=== PATIENT | male | born 1955 | race Two or more races ===

== ENCOUNTER 2017-10-19 23:18 | Inpatient (IN) | payer MEDICAID ==
[~2017-10-19] VITALS: Ht 175.3 cm; Wt 88.5 kg
[~2017-10-19 23:18] MED LIST: FOLI1TAB16 PO; LACT10SO PO; METF500T4 PO; OMEP20CA4 PO; SUCR1TAB31 PO
[2017-10-20] MEDS ORDERED: MORPHINE SULFATE INJ 2 MG/ML DISP.SYRIN IV ONE
[2017-10-20] MEDS ORDERED: ONDANSETRON HCL/PF 4 MG/2 ML VIAL IV ONE
[2017-10-20 00:10] LABS: BASOPHILS % (AUTO) 0.3 % (0.0-2.0); EOSINOPHILS % (AUTO) 1.1 % (0.0-6.0); HEMATOCRIT 36 % (39-51); HEMOGLOBIN 12.5 g/dL (13.5-17.5); LYMPHOCYTES # (AUTO) 0.7 /CMM (0.8-4.8); LYMPHOCYTES % (AUTO) 15.9 % (20.0-44.0); MEAN CORPUSCULAR HEMOGLOBIN 33 PG (26.0-33.0); MEAN CORPUSCULAR HGB CONC 35 g/dl (31.0-36.0); MEAN CORPUSCULAR VOLUME 95 fL (80-96); MONOCYTES # (AUTO) 0.5 /CMM (0.1-1.30); MONOCYTES % (AUTO) 10.7 % (2.0-12.0); NEUTROPHILS # (AUTO) 3.1 /CMM (1.8-8.9); PLATELET COUNT (AUTO) 115 /CMM (150-450); RDW COEFFICIENT OF VARIATION 14.5 (11.5-15.0); RED BLOOD CELL COUNT(AUTO) 3.78 MIL/uL (4.5-6.0); WHITE BLOOD COUNT (AUTO) 4.3 K/uL (4.3-11.0)
[2017-10-20 00:23] LABS: SERUM AMMONIA 56 umol/L (11-32)
[2017-10-20 00:24] LABS: CALCIUM, SERUM 8.1 mg/dL (8.5-10.1); CARBON DIOXIDE 26 mmol/L (21-32); CHLORIDE 109 mmol/L (98-107); CREATININE 0.8 mg/dL (0.6-1.3); GLUCOSE 105 mg/dL (74-106); POTASSIUM 3.9 mmol/L (3.5-5.1); SODIUM SERUM 141 mmol/L (136-145); UREA NITROGEN, BLOOD 15 mg/dL (7-18)
[2017-10-20 00:29] LABS: ALANINE AMINOTRANSFERASE 40 U/L (12-78); ALBUMIN 2.6 g/dL (3.4-5.0); ALKALINE PHOSPHATASE 144 U/L (46-116); ASPARTATE AMINOTRANSFERASE 60 U/L (15-37); BILIRUBIN,DIRECT 0.5 mg/dL (0.0-0.2); BILIRUBIN,TOTAL 1.3 mg/dL (0.2-1.0); LIPASE 231 U/L (73-393); TOTAL PROTEIN, SERUM 7.5 g/dL (6.4-8.2)
[2017-10-20 00:30] LABS: INR 1.18 (0.87-1.13); PROTHROMBIN TIME 12.3 SECS (9.5-12.7)
[2017-10-20] MEDS ORDERED: ONDANSETRON HCL/PF 4 MG/2 ML VIAL ONE (00:30)
[2017-10-20] MEDS ORDERED: MORPHINE SULFATE INJ 4 MG/ML DISP.SYRIN ONE (00:30)
[2017-10-20 00:32] LABS: TROPONIN I < 0.017 ng/mL (0.00-0.056)
[2017-10-20 03:00] VITALS: BP 137/89
[2017-10-20 03:30] VITALS: BP 137/89
[2017-10-20] MEDS ORDERED: *INSULIN REGULAR(HUMULIN R)HUM 100 UNIT/ML VIAL SQ PRN (04:00)
[2017-10-20] MEDS ORDERED: ACETAMINOPHEN 325 MG TABLET PO PRN (04:00)
[2017-10-20] MEDS ORDERED: INSULIN REGULAR, HUMAN 100 UNIT/ML 3 ML VIAL SQ PRN (04:00)
[2017-10-20] MEDS ORDERED: HYDROCODONE/APAP 5/325MG 1 EACH TABLET PO PRN (04:00)
[2017-10-20] MEDS ORDERED: DEXTROSE 50%-WATER 50 ML DISP.SYRIN IV PRN (04:00)
[2017-10-20] MEDS: BLOOD SUGAR DIAGNOSTIC 1 EACH STRIP VI SCH ×4 (06:39→23:04)
[2017-10-20 08:00] VITALS: BP 101/59
[2017-10-20 08:48] LABS: BASOPHILS % (AUTO) 0.2 % (0.0-2.0); EOSINOPHILS # (AUTO) 0.1 /CMM (0.0-0.7); EOSINOPHILS % (AUTO) 2.2 % (0.0-6.0); HEMATOCRIT 32 % (39-51); HEMOGLOBIN 11.4 g/dL (13.5-17.5); LYMPHOCYTES # (AUTO) 0.8 /CMM (0.8-4.8); LYMPHOCYTES % (AUTO) 22.2 % (20.0-44.0); MEAN CORPUSCULAR HEMOGLOBIN 34 PG (26.0-33.0); MEAN CORPUSCULAR HGB CONC 35 g/dl (31.0-36.0); MEAN CORPUSCULAR VOLUME 96 fL (80-96); MONOCYTES # (AUTO) 0.5 /CMM (0.1-1.30); MONOCYTES % (AUTO) 13.7 % (2.0-12.0); NEUTROPHILS # (AUTO) 2.3 /CMM (1.8-8.9); NEUTROPHILS % (AUTO) 61.7 % (43.0-81.0); PLATELET COUNT (AUTO) 101 /CMM (150-450); RDW COEFFICIENT OF VARIATION 14.1 (11.5-15.0); RED BLOOD CELL COUNT(AUTO) 3.36 MIL/uL (4.5-6.0); WHITE BLOOD COUNT (AUTO) 3.7 K/uL (4.3-11.0)
[2017-10-20 08:58] LABS: CALCIUM, SERUM 7.5 mg/dL (8.5-10.1); CREATININE 0.8 mg/dL (0.6-1.3); POTASSIUM 3.8 mmol/L (3.5-5.1)
[2017-10-20] MEDS: METFORMIN 500 MG TABLET PO SCH ×2 (09:00→17:00)
[2017-10-20 16:00] VITALS: BP 108/55
[2017-10-20] MEDS: PANTOPRAZOLE 40 MG TABLET.DR PO SCH (19:07)
[2017-10-20] MEDS: FUROSEMIDE 20 MG TABLET PO SCH (19:07)
[2017-10-20] MEDS: SPIRONOLACTONE 25 MG TABLET PO SCH (19:07)
[2017-10-20 20:00] VITALS: BP 112/57
[2017-10-21] MEDS: BLOOD SUGAR DIAGNOSTIC 1 EACH STRIP VI SCH ×2 (06:34→12:00)
[2017-10-21 06:52] LABS: BASOPHILS % (AUTO) 0.2 % (0.0-2.0); EOSINOPHILS # (AUTO) 0.1 /CMM (0.0-0.7); EOSINOPHILS % (AUTO) 1.2 % (0.0-6.0); HEMATOCRIT 36 % (39-51); HEMOGLOBIN 12.6 g/dL (13.5-17.5); LYMPHOCYTES # (AUTO) 0.8 /CMM (0.8-4.8); LYMPHOCYTES % (AUTO) 17.1 % (20.0-44.0); MEAN CORPUSCULAR HEMOGLOBIN 34 PG (26.0-33.0); MEAN CORPUSCULAR HGB CONC 35 g/dl (31.0-36.0); MEAN CORPUSCULAR VOLUME 97 fL (80-96); MONOCYTES # (AUTO) 0.4 /CMM (0.1-1.30); MONOCYTES % (AUTO) 9.1 % (2.0-12.0); NEUTROPHILS # (AUTO) 3.2 /CMM (1.8-8.9); NEUTROPHILS % (AUTO) 72.4 % (43.0-81.0); PLATELET COUNT (AUTO) 114 /CMM (150-450); RDW COEFFICIENT OF VARIATION 14.5 (11.5-15.0); RED BLOOD CELL COUNT(AUTO) 3.76 MIL/uL (4.5-6.0); WHITE BLOOD COUNT (AUTO) 4.4 K/uL (4.3-11.0)
[2017-10-21 07:09] LABS: ALBUMIN 2.3 g/dL (3.4-5.0); BILIRUBIN,TOTAL 1.3 mg/dL (0.2-1.0); CALCIUM, SERUM 7.8 mg/dL (8.5-10.1); CREATININE 0.9 mg/dL (0.6-1.3); POTASSIUM 4.2 mmol/L (3.5-5.1)
[2017-10-21 08:00] VITALS: BP 143/63
[2017-10-21] MEDS: SPIRONOLACTONE 25 MG TABLET PO SCH (08:55)
[2017-10-21] MEDS: PANTOPRAZOLE 40 MG TABLET.DR PO SCH (08:55)
[2017-10-21] MEDS: FUROSEMIDE 20 MG TABLET PO SCH (08:56)
[2017-10-21] MEDS: METFORMIN 500 MG TABLET PO SCH (08:56)
[2017-10-21] MEDS ORDERED: FURO-144 PO (10:53)
[2017-10-21] MEDS ORDERED: SPIR100T PO (10:55)
== END 2017-10-21 14:30 | disposition home or self-care (01) ==
LOC: ER 23:22 → MED 10-20 02:22
PROVIDERS: ADMIT Internal Medicine; ATTEND Internal Medicine
PROC: 0W9G3ZZ Drainage of Peritoneal Cavity, Percutaneous Approach (ICD-10-PCS; principal; 2017-10-20)
DX: K74.69 Other cirrhosis of liver (principal); R18.8 Other ascites; I10 Essential (primary) hypertension; E11.9 Type 2 diabetes mellitus without complications; D63.8 Anemia in other chronic diseases classified elsewhere; E78.5 Hyperlipidemia, unspecified; I25.10 Atherosclerotic heart disease of native coronary artery without angina pectoris; Z79.899 Other long term (current) drug therapy; Z95.5 Presence of coronary angioplasty implant and graft; Z79.84 Long term (current) use of oral hypoglycemic drugs; K80.20 Calculus of gallbladder without cholecystitis without obstruction
CPT/HCPCS: 36415; 71045-TC; 74181-TC; 76942-TC; 80048-TC; 80053-TC; 80076-TC; 82140-TC; 82247-TC; 82962-TC; 83605-TC; 83690-TC; 84484-TC; 85025-TC; 85730-TC; 87040-TC; 87070-TC; 87081-TC; 88305-TC; 88312-TC; 89051-TC; A4606; J1815; J2270; J2405; Z7610

== ENCOUNTER 2018-04-16 20:08 | Emergency (ER) | payer MEDICAID ==
[~2018-04-16] VITALS: Ht 177.8 cm; Wt 88.0 kg
[~2018-04-16 20:08] MED LIST changes: +FURO-144 PO; -METF500T4 PO; +METF500T6 PO; +SPIR100T PO
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
--- NOTE | 2018-04-16 20:50 | NUR ---
LAB AT BEDSIDE
--- NOTE | 2018-04-16 21:35 | NUR ---
PT BROUGHT TO CT
[2018-04-16 21:50] VITALS: BP 123/72
[2018-04-16 22:03] LABS: BASOPHILS % (AUTO) 0.2 % (0.0-2.0); EOSINOPHILS % (AUTO) 0.8 % (0.0-6.0); HEMATOCRIT 38 % (39-51); HEMOGLOBIN 12.9 g/dL (13.5-17.5); LYMPHOCYTES # (AUTO) 0.8 /CMM (0.8-4.8); LYMPHOCYTES % (AUTO) 15.7 % (20.0-44.0); MEAN CORPUSCULAR HEMOGLOBIN 34 PG (26.0-33.0); MEAN CORPUSCULAR HGB CONC 34 g/dl (31.0-36.0); MEAN CORPUSCULAR VOLUME 99 fL (80-96); MONOCYTES # (AUTO) 0.5 /CMM (0.1-1.30); MONOCYTES % (AUTO) 9.8 % (2.0-12.0); NEUTROPHILS # (AUTO) 3.7 /CMM (1.8-8.9); NEUTROPHILS % (AUTO) 73.5 % (43.0-81.0); PLATELET COUNT (AUTO) 109 /CMM (150-450); RDW COEFFICIENT OF VARIATION 13.1 (11.5-15.0); RED BLOOD CELL COUNT(AUTO) 3.84 MIL/uL (4.5-6.0)
--- NOTE | 2018-04-16 22:05 | NUR ---
ON PHONE WITH REGARDING CT HEAD.
[2018-04-16 22:22] LABS: ALBUMIN 2.6 g/dL (3.4-5.0); BILIRUBIN,DIRECT 0.4 mg/dL (0.0-0.2); CALCIUM, SERUM 7.9 mg/dL (8.5-10.1); CREATININE 0.9 mg/dL (0.6-1.3); POTASSIUM 4.1 mmol/L (3.5-5.1); TOTAL PROTEIN, SERUM 7.7 g/dL (6.4-8.2)
--- NOTE | 2018-04-16 22:26 | NUR ---
RECEIVED CALL FROM IZZY AT [facility], FAXED HER FACESHEET AND CLINICALS TO [phone], SHE SAID SHE IS WORKING ON THE TRANSFER AND WILL CALL US BACK.
[2018-04-16] MEDS ORDERED: LEVETIRACETAM (500MG) 500 MG/5 ML VIAL IV ONE (22:28)
[2018-04-16] MEDS ORDERED: LEVETIRACETAM (500MG) 500 MG in IV NS 0.9% 100 ML IV SCH (22:30)
--- NOTE | 2018-04-16 22:47 | NUR ---
PT RESTING COMFORTABLY. NAD. VSS. FAMILY AT BEDSIDE.
[2018-04-16 22:50] LABS: INR 1.15 (0.87-1.13)
--- NOTE | 2018-04-16 22:51 | NUR ---
RECEIVED CALL FROM IZZY AT [facility], PT WILL BE GOING TO ROOM [facility]-, NUMBER TO GIVE REPORT IS [phone] [phone], SHE SAID SHE WILL CALL ME BACK WITH AMBULANCE ETA.
--- NOTE | 2018-04-16 23:02 | NUR ---
ETA FOR AMBULANCE [id number]
--- NOTE | 2018-04-16 23:14 | NUR ---
PT NAD. VSS. 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 SPEAKING FULL SENTENCES. STABLE CONDITION.
--- NOTE | 2018-04-16 23:37 | NUR ---
REPORT GIVEN TO GUILLERMINA VALENCIA
--- NOTE | 2018-04-16 23:46 | NUR ---
REPORT GIVEN TO AMBULANCE COMPANY. ENDORSED TO AMBULANCE COMPANY. PT STABLE CONDITION. VSS. NAD. EQUAL FACIAL SYMMETRY. 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 NEGATIVE N/V.
== END 2018-04-16 23:45 | disposition short-term general hospital (02) ==
LOC: ER 20:08
DX: S06.2X0A Diffuse traumatic brain injury without loss of consciousness, initial encounter (principal); K74.60 Unspecified cirrhosis of liver; E11.9 Type 2 diabetes mellitus without complications; D64.9 Anemia, unspecified; E78.5 Hyperlipidemia, unspecified; K80.20 Calculus of gallbladder without cholecystitis without obstruction; Z79.84 Long term (current) use of oral hypoglycemic drugs; Z95.818 Presence of other cardiac implants and grafts; Z79.899 Other long term (current) drug therapy; W18.09XA Striking against other object with subsequent fall, initial encounter; Y93.89 Activity, other specified; Y92.89 Other specified places as the place of occurrence of the external cause; Y99.8 Other external cause status
CPT/HCPCS: 36415; 70450-TC; 80048-TC; 80076-TC; 85025-TC; 85730-TC; A4606; J1953; J7030; Z7610

== ENCOUNTER 2018-09-28 17:50 | Emergency (ER) | END 2018-09-28 23:00 | disposition short-term general hospital (02) | DX: R18.8 Other ascites (principal); K74.60 Unspecified cirrhosis of liver; E11.9 Type 2 diabetes mellitus without complications; F10.10 Alcohol abuse, uncomplicated; Y90.9 Presence of alcohol in blood, level not specified; Z95.5 Presence of coronary angioplasty implant and graft ==